=== PATIENT | female | born 1930 | race Two or more races ===

== ENCOUNTER 2017-01-26 20:56 | Emergency (ER) | payer MEDICARE, OTHER ==
[~2017-01-26] VITALS: Ht 152.4 cm; Wt 72.6 kg
--- NOTE | 2017-01-26 21:11 | NUR ---
PT BIB FAMILY FOR SLIPP AND FALL IN SHOWER, PT C/O LEFT FA PAIN DENIES KO. PT AOX3 RR EVEN AND UNLABORED. NO SOB NOTED. NAD NOTED. NO NVD AT THIS TIME. PT GOWNED AND PLACED ON MONITOR WAITING FOR MD BOLTON.
[2017-01-26] MEDS ORDERED: HYDROCODONE/APAP 5/325MG 1 EACH TABLET ONE (21:30)
[2017-01-26] MEDS ORDERED: ONDANSETRON 4 MG TAB.RAPDIS ONE (21:30)
[2017-01-26] MEDS ORDERED: HYDROCODONE/APAP 5/325MG 1 EACH TABLET PO ONE (21:30)
[2017-01-26] MEDS ORDERED: ONDANSETRON 4 MG TAB.RAPDIS SL ONE (21:30)
[2017-01-26 21:53] VITALS: BP 128/70
--- NOTE | 2017-01-26 21:54 | NUR ---
Patient discharged to home in stable condition. Written and verbal after care instructions given. Patient verbalizes understanding of instruction.
== END 2017-01-26 21:54 | disposition home or self-care (01) ==
LOC: ER 21:04
DX: S52.532A Colles' fracture of left radius, initial encounter for closed fracture (principal); W18.2XXA Fall in (into) shower or empty bathtub, initial encounter; Y93.89 Activity, other specified; Y92.89 Other specified places as the place of occurrence of the external cause; Y99.8 Other external cause status
CPT/HCPCS: 29125; 73110; 99284; A4606; Q0162 ×2; Z7610

== ENCOUNTER 2019-01-14 19:18 | Emergency (ER) | payer MEDICARE, OTHER ==
[~2019-01-14] VITALS: Ht 152.4 cm; Wt 70.3 kg
[2019-01-14 19:27] VITALS: BP 132/77
== END 2019-01-14 19:58 | disposition home or self-care (01) ==
LOC: ER 19:20
DX: S91.311A Laceration without foreign body, right foot, initial encounter (principal); I10 Essential (primary) hypertension; M19.90 Unspecified osteoarthritis, unspecified site; E78.5 Hyperlipidemia, unspecified; W01.0XXA Fall on same level from slipping, tripping and stumbling without subsequent striking against object, initial encounter; Y93.89 Activity, other specified; Y92.89 Other specified places as the place of occurrence of the external cause; Y99.8 Other external cause status